=== PATIENT | male | born 1975 | race Caucasian/White ===

== ENCOUNTER 2016-11-04 11:26 | Inpatient (IN) | payer OTHER ==
[2016-11-04 11:39] VITALS: BMI 25.1
--- NOTE | 2016-11-04 12:39 | HP ---
COWS - Scale Resting Pulse: 1= CT 81-100 Sweatin=Flushed/Facial Moisture Restless Observation: 3= Extraneous Movement Pupil Size: 2= Moderately Dilated Bone or Joint Aches: 2= Severe Diffuse Aches Runny Nose/ Eye Tearin= Runny Nose/Eyes GI Upset > 30mins: 3= Vomiting/Diarrhea Tremor Observation: 2= Slight Tremor Visible Yawning Observation: 2= >3x During Session Anxiety or Irritability: 2=Irritable/Anxious Goose Flesh Skin: 0=Smooth Skin COWS Score: 21 CIWA Score - CIWA Score Nausea/Vomitin Muscle Tremors: 3 Anxiety: 3 Agitation: 3 Paroxysmal Sweats: 2 Orientation: 0-Oriented Tacttile Disturbances: 2-Mild Itch/Numbness/Burn Auditory Disturbances: 2-Mild Harshness/Frighten Visual Disturbances: 2-Mild Sensitivity Headache: 2-Mild CIWA-Ar Total Score: 22 Admission ROS BHS - HPI Chief Complaint: I NEED HELP TO STOP USING HEROIN AND XANAX History of Present Illness: THIS 41 YEARS OLD MALE WITH HEROIN AND XANAX DEPENDENCE,WITHDRAWAL SYMPTOM, NEVER BEEN IN DETOX BEFORE NICOTINE DEPENDENCE LOW BACK PAIN NEED HELP TO STOP Exam Limitations: No Limitations - Ebola screening Have you traveled outside of the country in the last 21 days: No Have you been sick,other than usual withdrawal symptoms: No - Review of Systems Constitutional: Chills, Diaphoresis, Loss of Appetite, Malaise, Night Sweats, Changes in sleep, Weakness EENT: reports: Tearing, Nose Congestion Respiratory: reports: No Symptoms reported Cardiac: reports: Palpitations GI: reports: Diarrhea, Nausea, Vomiting, Abdominal cramping : reports: No Symptoms Reported Musculoskeletal: reports: Back Pain, Joint Pain, Muscle Pain, Muscle Weakness Integumentary: reports: Dryness Neuro: reports: Headache, Tremors Endocrine: reports: No Symptoms Reported Hematology: reports: No Symptoms Reported Psychiatric: reports: No Sypmtoms Reported Patient History - Patient Medical History Hx Anemia: No Hx Asthma: No Hx Chronic Obstructive Pulmonary Disease (COPD): No Hx Cancer: No Hx Cardiac Disorders: No Hx Congestive Heart Failure: No Hx Hypertension: No Hx Hypercholesterolemia: No Hx Pacemaker: No HX Cerebrovascular Accident: No Hx Seizures: No Hx Dementia: No Hx Diabetes: No Hx Gastrointestinal Disorders: No Hx Liver Disease: No Hx Genitourinary Disorders: No Hx Sexually Transmitted Disorders: No Hx Renal Disease (ESRD): No Hx Thyroid Disease: No Hx Human Immunodeficiency Virus (HIV): No (2011 LAST NEGATIVE) Hx Hepatitis C: No Hx Depression: No Hx Suicide Attempt: No Hx Bipolar Disorder: No Hx Schizophrenia: No Other Medical History: NO SUICIDAL,NO HOMICIDAL - Patient Surgical History Past Surgical History: No - PPD History Previous Implant?: Yes Documented Results: Negative w/o proof Implanted On Prior R Admission?: No PPD to be Administered?: Yes - Smoking Cessation Smoking history: Current every day smoker Have you smoked in the past 12 months: Yes Aproximately how many cigarettes per day: 20 Cigars Per Day: 0 Hx Chewing Tobacco Use: No Initiated information on smoking cessation: Yes 'Breaking Loose' booklet given: 11/04/16 - Substance & Tx. History Hx Alcohol Use: No Hx Substance Use: Yes Substance Use Type: Heroin, Tranquilizers Hx Substance Use Treatment: No Family Disease History - Family Disease History Family History: Denies Admission Physical Exam S - Vital Signs Vital Signs: Vital Signs - 24 hr 11/04/16 11:37 Temperature 97.3 F L Pulse Rate 94 H Respiratory 18 Rate Blood Pressure 120/86 - Physical General Appearance: Yes: Moderate Distress, Tremorous, Irritable, Sweating, Anxious HEENTM: Yes: Nasal Congestion Respiratory: Yes: Lungs Clear Neck: Yes: Within Normal Limits Breast: Yes: Within Normal Limits Cardiology: Yes: Within Normal Limits, Regular Rhythm, Regular Rate, S1, S2 Abdominal: Yes: Within Normal Limits, Normal Bowel Sounds, Non Tender, Flat, Soft Genitourinary: Yes: Within Normal Limits Back: Yes: Muscle Spasm Musculoskeletal: Yes: Back pain, Joint Stiffness, Muscle Pain Extremities: Yes: Tremors 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, Fully Oriented, Alert, Motor Strength 5/5 Integumentary: Yes: Dry Lymphatic: Yes: Within Normal Limits - Diagnostic (1) Opioid dependence with withdrawal Current Visit: Yes Status: Acute (2) Uncomplicated sedative, hypnotic or anxiolytic withdrawal Current Visit: Yes Status: Acute (3) Low back pain Current Visit: Yes Status: Acute (4) Herniated lumbar intervertebral disc Current Visit: Yes Status: Acute (5) Nicotine dependence Current Visit: Yes Status: Acute (6) Fracture of coccyx Current Visit: Yes Status: Acute (7) Weight loss Current Visit: Yes Status: Acute Cleared for Admission [facility] - Detox or Rehab [facility] Level of Care: Medically Managed Detox Regimen/Protocol: Methadone/Valium S Breath Alcohol Content Breath Alcohol Content: 0 Urine Drug Screen - Results Drug Screen Negative: No Urine Drug Screen Results: OPI-Opiates, MDMA-Ecstasy, BZO-Benzodiazepines, MTD- Methadone
[2016-11-04] MEDS ORDERED: MAGNESIUM CITRATE 300 ML BOTTLE PO PRN (12:59)
[2016-11-04] MEDS ORDERED: hydrOXYzine PAMOATE 50 MG CAPSULE (FP) PO PRN (12:59)
[2016-11-04] MEDS ORDERED: NICOTINE POLACRILEX 2 MG GUM BUC PRN (12:59)
[2016-11-04] MEDS ORDERED: MAGNESIUM HYDROX 2400MG/30ML ORAL SUSPENSION 30 ML CUP PO PRN (12:59)
[2016-11-04] MEDS ORDERED: ACETAMINOPHEN 325 MG TABLET (FP) PO PRN (12:59)
[2016-11-04] MEDS ORDERED: guaiFENesin/D-METHORPHAN HB 10 ML UNIT-DOSE CUPS PO PRN (12:59)
[2016-11-04] MEDS ORDERED: MENTHOL/PHENOL 1 EACH UD MM PRN (12:59)
[2016-11-04] MEDS ORDERED: P-EPHED 60MG/TRIPROLIDI 2.5MG TABLET PO PRN (12:59)
[2016-11-04] MEDS ORDERED: LOPERAMIDE HCL 2 MG CAPSULE PO PRN (12:59)
[2016-11-04] MEDS ORDERED: MAG HYDROX/AL HYDROX/SIMETH 30 ML UNIT-DOSE CUP PO PRN (12:59)
[2016-11-04] MEDS ORDERED: IBUPROFEN 400 MG TABLET (FP) PO PRN (12:59)
[2016-11-04] MEDS ORDERED: diazePAM 5 MG TABLET PO ONE (13:42)
[2016-11-04] MEDS ORDERED: METHADONE HCL 10 MG TABLET (FOR DETOX USE ONLY) PO ONE ×2 (13:44→23:00)
[2016-11-04] MEDS: NICOTINE 21 MG/24 HOURS TOPICAL PATCH TD SCH (14:54)
[2016-11-04] MEDS: diazePAM 5 MG TABLET PO SCH ×2 (14:59→22:07)
[2016-11-04] MEDS: diazePAM 5 MG TABLET PO PRN (18:27)
[2016-11-04] MEDS: CYCLOBENZAPRINE HCL 10 MG TABLET (FP) PO PRN (18:30)
[2016-11-04 20:06] LABS: URINE APPEARANCE CLEAR; URINE BILIRUBIN NEGATIVE (NEGATIVE); URINE BLOOD NEGATIVE (NEGATIVE); URINE COLOR DKYELLOW; URINE GLUCOSE (UA) NEGATIVE (NEGATIVE); URINE KETONE 2+ (NEGATIVE); URINE LEUK ESTERASE NEGATIVE (NEGATIVE); URINE NITRITE NEGATIVE (NEGATIVE); URINE PROTEIN NEGATIVE (NEGATIVE); URINE UROBILINOGEN 4.0 E.U/dl E.U./dl (0.2-1.0)
[2016-11-04] MEDS: THIAMINE HCL 100 MG TABLET (FP) PO SCH (22:06)
[2016-11-04] MEDS: cloNIDine HCL 0.1 MG TABLET PO SCH (22:07)
[2016-11-04] MEDS: diphenhydrAMINE HCL 50 MG CAPSULE PO PRN (22:07)
[2016-11-05] MEDS: diazePAM 5 MG TABLET PO PRN ×3 (04:23→17:18)
[2016-11-05] MEDS: diazePAM 5 MG TABLET PO SCH ×3 (05:40→22:10)
[2016-11-05] MEDS: CYCLOBENZAPRINE HCL 10 MG TABLET (FP) PO PRN ×2 (05:43→22:12)
--- NOTE | 2016-11-05 09:28 | PN ---
[facility] CIWA - CIWA Score Nausea/Vomitin Muscle Tremors: 3 Anxiety: 3 Agitation: 2 Paroxysmal Sweats: 1-Minimal Palms Moist Orientation: 0-Oriented Tacttile Disturbances: 1-Very Mild Itch/Numbness Auditory Disturbances: 1-Very Mild Visual Disturbances: 1-Very Mild Sensitivity Headache: 2-Mild CIWA-Ar Total Score: 17 BHS COWS - Scale Resting Pulse: 1= ID 81-100 Sweatin= Chills/Flushing Restless Observation: 3= Extraneous Movement Pupil Size: 1= Pupils >than Normal Bone or Joint Aches: 2= Severe Diffuse Aches Runny Nose/ Eye Tearin= Runny Nose/Eyes GI Upset > 30mins: 2= Nausea/Diarrhea Tremor Observation of Outstretched Hands: 2= Slight Tremor Visible Yawning Observation: 1= 1-2x During Session Anxiety or Irritability: 2=Irritable/Anxious Goose Flesh Skin: 0=Smooth Skin COWS Score: 17 [facility] Progress Note (SOAP) Subjective: ALERT,IRRITABLE,ANXIOUS,INTERRUPTED SLEEP,TREMOR Objective: 11/05/16 09:25 Vital Signs Temperature 97.7 F 11/05/16 06:08 Pulse Rate 83 11/05/16 06:08 Respiratory Rate 16 11/05/16 06:08 Blood Pressure 113/78 11/05/16 06:08 O2 Sat by Pulse Oximetry (%) EKG NSR WITH SINUS ARRHYTHMIA 11/05/16 09:27 Laboratory 11/04/16 14:00 Urine Color Dkyellow Urine Appearance Clear Urine pH 7.0 (5.0-8.0) Ur Specific [place] 1.024 (1.001-1.035) Urine Protein Negative (NEGATIVE) Urine Glucose (UA) Negative (NEGATIVE) Urine Ketones 2+ H (NEGATIVE) Urine Blood Negative (NEGATIVE) Urine Nitrite Negative (NEGATIVE) Urine Bilirubin Negative (NEGATIVE) Urine Urobilinogen 4.0 e.u/dl E.U./dl E.U./dl (0.2-1.0) Ur Leukocyte Esterase Negative (NEGATIVE) LABS PENDING Assessment: 11/05/16 09:27 WITHDRAWAL SYMPTOM Plan: CONTINUE DETOX
[2016-11-05] MEDS ORDERED: METHADONE HCL 10 MG TABLET (FOR DETOX USE ONLY) PO SCH (10:00)
[2016-11-05] MEDS: PRENATAL VITAMINS W/ FOLIC ACID TABLET (FP) PO SCH (10:10)
[2016-11-05] MEDS: cloNIDine HCL 0.1 MG TABLET PO SCH ×2 (10:10→22:10)
[2016-11-05] MEDS: NICOTINE 21 MG/24 HOURS TOPICAL PATCH TD SCH (10:11)
[2016-11-05 11:37] LABS: MCH 29.4 pg (25.7-33.7); MCHC 33.7 g/dl (32.0-35.9); MEAN CELL VOLUME 87.1 fl (80-96); MEAN PLT VOLUME 8.2 fl (7.5-11.1); PLATELET COUNT 276 K/MM3 (134-434); RDW 13.6 % (11.9-15.9); WHITE BLOOD COUNT 16.2 K/mm3 (4.0-10.0)
[2016-11-05 11:56] LABS: ALBUMIN 4.3 g/dl (3.4-5.0); ANION GAP 6 (8-16); CALCIUM 9.5 mg/dL (8.5-10.1); CO2 30 mmol/L (21-32); GLUCOSE,RANDOM 96 mg/dL (74-106)
[2016-11-05 11:59] LABS: ALK PHOS 91 U/L (45-117); BILIRUBIN,TOTAL 0.7 mg/dL (0.2-1.0); CREATININE 0.8 mg/dL (0.7-1.3); SGOT/AST 15 U/L (15-37); SGPT/ALT 27 U/L (12-78); TOT PROT 7.5 g/dl (6.4-8.2)
[2016-11-05] MEDS: THIAMINE HCL 100 MG TABLET (FP) PO SCH (22:10)
[2016-11-05] MEDS: diphenhydrAMINE HCL 50 MG CAPSULE PO PRN (22:12)
[2016-11-06] MEDS: diazePAM 5 MG TABLET PO PRN ×2 (05:34→14:58)
[2016-11-06] MEDS: cloNIDine HCL 0.1 MG TABLET PO SCH ×2 (10:15→22:04)
[2016-11-06] MEDS: diazePAM 5 MG TABLET PO SCH ×2 (10:15→22:04)
[2016-11-06] MEDS: PRENATAL VITAMINS W/ FOLIC ACID TABLET (FP) PO SCH (10:15)
[2016-11-06] MEDS: METHADONE HCL 5 MG TABLET (FOR DETOX USE ONLY) PO SCH (10:15)
[2016-11-06] MEDS: NICOTINE 21 MG/24 HOURS TOPICAL PATCH TD SCH (10:16)
--- NOTE | 2016-11-06 15:49 | PN ---
[facility] CIWA - CIWA Score Nausea/Vomitin-No Nausea/No Vomiting Muscle Tremors: 3 Anxiety: 4-Mod. Anxious/Guarded Agitation: 3 Paroxysmal Sweats: 3 Orientation: 0-Oriented Tacttile Disturbances: 0-None Auditory Disturbances: 0-None Visual Disturbances: 0-None Headache: 0-None Present CIWA-Ar Total Score: 13 BHS COWS - Scale Resting Pulse: 1= MT 81-100 Sweatin=Flushed/Facial Moisture Restless Observation: 1= Difficult to Sit Still Pupil Size: 0= Normal to Room Light Bone or Joint Aches: 2= Severe Diffuse Aches Runny Nose/ Eye Tearin= Nasal Congestion GI Upset > 30mins: 2= Nausea/Diarrhea Tremor Observation of Outstretched Hands: 2= Slight Tremor Visible Yawning Observation: 1= 1-2x During Session Anxiety or Irritability: 2=Irritable/Anxious Goose Flesh Skin: 0=Smooth Skin COWS Score: 14 S Progress Note (SOAP) Subjective: ANXIETY,TREMORS,SWEATING,INTERRUPTED SLEEP,RESTLESS Objective: 11/06/16 15:49 Vital Signs - 8 hr 11/06/16 11/06/16 10:33 13:47 Temperature 96.2 F L 98.2 F Pulse Rate 84 92 H Respiratory 20 18 Rate Blood Pressure 121/75 122/76 Laboratory Last Values WBC 16.2 K/mm3 (4.0-10.0) H 11/05/16 06:00 RBC 5.79 M/mm3 (4.00-5.60) H 11/05/16 06:00 Hgb 17.0 GM/dL (11.7-16.9) H 11/05/16 06:00 Hct 50.4 % (35.4-49) H 11/05/16 06:00 MCV 87.1 fl (80-96) 11/05/16 06:00 MCHC 33.7 g/dl (32.0-35.9) 11/05/16 06:00 RDW 13.6 % (11.9-15.9) 11/05/16 06:00 Plt Count 276 K/MM3 (134-434) 11/05/16 06:00 MPV 8.2 fl (7.5-11.1) 11/05/16 06:00 Sodium 138 mmol/L (136-145) 11/05/16 06:00 Potassium 5.1 mmol/L (3.5-5.1) 11/05/16 06:00 Chloride 102 mmol/L (98-107) 11/05/16 06:00 Carbon Dioxide 30 mmol/L (21-32) 11/05/16 06:00 Anion Gap 6 (8-16) L 11/05/16 06:00 BUN 11 mg/dL (7-18) 11/05/16 06:00 Creatinine 0.8 mg/dL (0.7-1.3) 11/05/16 06:00 Creat Clearance w eGFR > 60 (>60) 11/05/16 06:00 Random Glucose 96 mg/dL (74-106) 11/05/16 06:00 Calcium 9.5 mg/dL (8.5-10.1) 11/05/16 06:00 Total Bilirubin 0.7 mg/dL (0.2-1.0) 11/05/16 06:00 AST 15 U/L (15-37) 11/05/16 06:00 ALT 27 U/L (12-78) 11/05/16 06:00 Alkaline Phosphatase 91 U/L (45-117) 11/05/16 06:00 Total Protein 7.5 g/dl (6.4-8.2) 11/05/16 06:00 Albumin 4.3 g/dl (3.4-5.0) 11/05/16 06:00 Urine Color Dkyellow 11/04/16 14:00 Urine Appearance Clear 11/04/16 14:00 Urine pH 7.0 (5.0-8.0) 11/04/16 14:00 Ur Specific [place] 1.024 (1.001-1.035) 11/04/16 14:00 Urine Protein Negative (NEGATIVE) 11/04/16 14:00 Urine Glucose (UA) Negative (NEGATIVE) 11/04/16 14:00 Urine Ketones 2+ (NEGATIVE) H 11/04/16 14:00 Urine Blood Negative (NEGATIVE) 11/04/16 14:00 Urine Nitrite Negative (NEGATIVE) 11/04/16 14:00 Urine Bilirubin Negative (NEGATIVE) 11/04/16 14:00 Urine Urobilinogen 4.0 e.u/dl E.U./dl (0.2-1.0) 11/04/16 14:00 Ur Leukocyte Esterase Negative (NEGATIVE) 11/04/16 14:00 RPR Titer Nonreactive (NONREACTIVE) 11/05/16 06:00 LABS NOTED Assessment: 11/06/16 15:49 WITHDRAWAL SX. Plan: CONTINUE DETOX
[2016-11-06] MEDS: THIAMINE HCL 100 MG TABLET (FP) PO SCH (22:04)
[2016-11-06] MEDS: diphenhydrAMINE HCL 50 MG CAPSULE PO PRN (22:04)
[2016-11-07] MEDS: diazePAM 5 MG TABLET PO PRN (04:12)
[2016-11-07] MEDS: diazePAM 5 MG TABLET PO SCH ×2 (10:18→22:31)
[2016-11-07] MEDS: cloNIDine HCL 0.1 MG TABLET PO SCH ×2 (10:18→22:31)
[2016-11-07] MEDS: METHADONE HCL 5 MG TABLET (FOR DETOX USE ONLY) PO SCH (10:18)
[2016-11-07] MEDS: PRENATAL VITAMINS W/ FOLIC ACID TABLET (FP) PO SCH (10:18)
[2016-11-07] MEDS: NICOTINE 21 MG/24 HOURS TOPICAL PATCH TD SCH (10:19)
[2016-11-07] MEDS: CYCLOBENZAPRINE HCL 10 MG TABLET (FP) PO PRN (10:20)
--- NOTE | 2016-11-07 13:44 | PN ---
[facility] Progress Note (SOAP) Subjective: SWEATING,INTERRUPTED SLEEP,RESTLESS Objective: 11/07/16 13:43 Vital Signs - 8 hr 11/07/16 11/07/16 06:09 10:00 Temperature 96.8 F L 98.2 F Pulse Rate 89 95 H Respiratory 18 20 Rate Blood Pressure 114/72 143/77 Laboratory Tests 11/04/16 11/05/16 11/05/16 14:00 06:00 06:00 WBC 16.2 H RBC 5.79 H Hgb 17.0 H Hct 50.4 H MCV 87.1 MCHC 33.7 RDW 13.6 Plt Count 276 MPV 8.2 Sodium 138 Potassium 5.1 Chloride 102 Carbon Dioxide 30 Anion Gap 6 L BUN 11 Creatinine 0.8 Creat Clearance w eGFR > 60 Random Glucose 96 Calcium 9.5 Total Bilirubin 0.7 AST 15 ALT 27 Alkaline Phosphatase 91 Total Protein 7.5 Albumin 4.3 Urine Color Dkyellow Urine Appearance Clear Urine pH 7.0 Ur Specific [place] 1.024 Urine Protein Negative Urine Glucose (UA) Negative Urine Ketones 2+ H Urine Blood Negative Urine Nitrite Negative Urine Bilirubin Negative Urine Urobilinogen 4.0 e.u/dl Ur Leukocyte Esterase Negative RPR Titer 11/05/16 06:00 WBC RBC Hgb Hct MCV MCHC RDW Plt Count MPV Sodium Potassium Chloride Carbon Dioxide Anion Gap BUN Creatinine Creat Clearance w eGFR Random Glucose Calcium Total Bilirubin AST ALT Alkaline Phosphatase Total Protein Albumin Urine Color Urine Appearance Urine pH Ur Specific [place] Urine Protein Urine Glucose (UA) Urine Ketones Urine Blood Urine Nitrite Urine Bilirubin Urine Urobilinogen Ur Leukocyte Esterase RPR Titer Nonreactive LABS NOTED Assessment: 11/07/16 13:44 WITHDRAWAL SX. Plan: CONTINUE DETOX
[2016-11-07] MEDS: THIAMINE HCL 100 MG TABLET (FP) PO SCH (22:31)
[2016-11-07] MEDS: diphenhydrAMINE HCL 50 MG CAPSULE PO PRN (22:31)
[2016-11-08] MEDS ORDERED: diazePAM 5 MG TABLET PO SCH (10:00)
[2016-11-08] MEDS ORDERED: METHADONE HCL 10 MG TABLET (FOR DETOX USE ONLY) PO SCH (10:00)
[2016-11-08] MEDS: PRENATAL VITAMINS W/ FOLIC ACID TABLET (FP) PO SCH (10:20)
[2016-11-08] MEDS: cloNIDine HCL 0.1 MG TABLET PO SCH ×2 (10:20→22:36)
[2016-11-08] MEDS: NICOTINE 21 MG/24 HOURS TOPICAL PATCH TD SCH (10:21)
--- NOTE | 2016-11-08 14:50 | PN ---
[facility] Progress Note (SOAP) Subjective: Interrupted Sleep, Back Ache, Anxious, Sweating. Objective: 11/08/16 14:48 Vital Signs Temperature 97.6 F 11/08/16 13:56 Pulse Rate 105 H 11/08/16 13:56 Respiratory Rate 20 11/08/16 13:56 Blood Pressure 128/69 11/08/16 13:56 O2 Sat by Pulse Oximetry (%) Laboratory Last Values WBC 16.2 K/mm3 (4.0-10.0) H 11/05/16 06:00 RBC 5.79 M/mm3 (4.00-5.60) H 11/05/16 06:00 Hgb 17.0 GM/dL (11.7-16.9) H 11/05/16 06:00 Hct 50.4 % (35.4-49) H 11/05/16 06:00 MCV 87.1 fl (80-96) 11/05/16 06:00 MCHC 33.7 g/dl (32.0-35.9) 11/05/16 06:00 RDW 13.6 % (11.9-15.9) 11/05/16 06:00 Plt Count 276 K/MM3 (134-434) 11/05/16 06:00 MPV 8.2 fl (7.5-11.1) 11/05/16 06:00 Sodium 138 mmol/L (136-145) 11/05/16 06:00 Potassium 5.1 mmol/L (3.5-5.1) 11/05/16 06:00 Chloride 102 mmol/L (98-107) 11/05/16 06:00 Carbon Dioxide 30 mmol/L (21-32) 11/05/16 06:00 Anion Gap 6 (8-16) L 11/05/16 06:00 BUN 11 mg/dL (7-18) 11/05/16 06:00 Creatinine 0.8 mg/dL (0.7-1.3) 11/05/16 06:00 Creat Clearance w eGFR > 60 (>60) 11/05/16 06:00 Random Glucose 96 mg/dL (74-106) 11/05/16 06:00 Calcium 9.5 mg/dL (8.5-10.1) 11/05/16 06:00 Total Bilirubin 0.7 mg/dL (0.2-1.0) 11/05/16 06:00 AST 15 U/L (15-37) 11/05/16 06:00 ALT 27 U/L (12-78) 11/05/16 06:00 Alkaline Phosphatase 91 U/L (45-117) 11/05/16 06:00 Total Protein 7.5 g/dl (6.4-8.2) 11/05/16 06:00 Albumin 4.3 g/dl (3.4-5.0) 11/05/16 06:00 Urine Color Dkyellow 11/04/16 14:00 Urine Appearance Clear 11/04/16 14:00 Urine pH 7.0 (5.0-8.0) 11/04/16 14:00 Ur Specific [place] 1.024 (1.001-1.035) 11/04/16 14:00 Urine Protein Negative (NEGATIVE) 11/04/16 14:00 Urine Glucose (UA) Negative (NEGATIVE) 11/04/16 14:00 Urine Ketones 2+ (NEGATIVE) H 11/04/16 14:00 Urine Blood Negative (NEGATIVE) 11/04/16 14:00 Urine Nitrite Negative (NEGATIVE) 11/04/16 14:00 Urine Bilirubin Negative (NEGATIVE) 11/04/16 14:00 Urine Urobilinogen 4.0 e.u/dl E.U./dl (0.2-1.0) 11/04/16 14:00 Ur Leukocyte Esterase Negative (NEGATIVE) 11/04/16 14:00 RPR Titer Nonreactive (NONREACTIVE) 11/05/16 06:00 LABS NOTED. Assessment: 11/08/16 14:48 WITHDRAWAL SYMPTOMS. Plan: CONTINUE DETOX. ADVISED PT. TO FOLLOW-UP WITH PMD / REHAB MEDICAL PROVIDER AFTER DISCHARGE FOR GENERAL MEDICAL ASSESSMENT AND REGARDING ABNORMAL LAB VALUES.
[2016-11-08] MEDS: THIAMINE HCL 100 MG TABLET (FP) PO SCH (22:36)
[2016-11-08] MEDS: diphenhydrAMINE HCL 50 MG CAPSULE PO PRN (22:37)
[2016-11-08] MEDS: CYCLOBENZAPRINE HCL 10 MG TABLET (FP) PO PRN (22:37)
[2016-11-09] MEDS ORDERED: METHADONE HCL 5 MG TABLET (FOR DETOX USE ONLY) PO SCH (06:00)
--- NOTE | 2016-11-09 08:43 | DS ---
[facility] Detox Discharge Summary Admission Date: 11/04/16 Discharge Date: 11/09/16 - History Present History: Opioid Dependence, Sedative Dependence Pertinent Past History: HERNIATED LUMBAR DISC - Physical Exam Results Vital Signs: Vital Signs Temperature 98.3 F 11/09/16 06:20 Pulse Rate 89 11/09/16 06:20 Respiratory Rate 18 11/09/16 06:20 Blood Pressure 111/75 11/09/16 06:20 O2 Sat by Pulse Oximetry (%) Pertinent Admission Physical Exam Findings: WITHDRAWAL SX. Laboratory Last Values WBC 16.2 K/mm3 (4.0-10.0) H 11/05/16 06:00 RBC 5.79 M/mm3 (4.00-5.60) H 11/05/16 06:00 Hgb 17.0 GM/dL (11.7-16.9) H 11/05/16 06:00 Hct 50.4 % (35.4-49) H 11/05/16 06:00 MCV 87.1 fl (80-96) 11/05/16 06:00 MCHC 33.7 g/dl (32.0-35.9) 11/05/16 06:00 RDW 13.6 % (11.9-15.9) 11/05/16 06:00 Plt Count 276 K/MM3 (134-434) 11/05/16 06:00 MPV 8.2 fl (7.5-11.1) 11/05/16 06:00 Sodium 138 mmol/L (136-145) 11/05/16 06:00 Potassium 5.1 mmol/L (3.5-5.1) 11/05/16 06:00 Chloride 102 mmol/L (98-107) 11/05/16 06:00 Carbon Dioxide 30 mmol/L (21-32) 11/05/16 06:00 Anion Gap 6 (8-16) L 11/05/16 06:00 BUN 11 mg/dL (7-18) 11/05/16 06:00 Creatinine 0.8 mg/dL (0.7-1.3) 11/05/16 06:00 Creat Clearance w eGFR > 60 (>60) 11/05/16 06:00 Random Glucose 96 mg/dL (74-106) 11/05/16 06:00 Calcium 9.5 mg/dL (8.5-10.1) 11/05/16 06:00 Total Bilirubin 0.7 mg/dL (0.2-1.0) 11/05/16 06:00 AST 15 U/L (15-37) 11/05/16 06:00 ALT 27 U/L (12-78) 11/05/16 06:00 Alkaline Phosphatase 91 U/L (45-117) 11/05/16 06:00 Total Protein 7.5 g/dl (6.4-8.2) 11/05/16 06:00 Albumin 4.3 g/dl (3.4-5.0) 11/05/16 06:00 Urine Color Dkyellow 11/04/16 14:00 Urine Appearance Clear 11/04/16 14:00 Urine pH 7.0 (5.0-8.0) 11/04/16 14:00 Ur Specific [place] 1.024 (1.001-1.035) 11/04/16 14:00 Urine Protein Negative (NEGATIVE) 11/04/16 14:00 Urine Glucose (UA) Negative (NEGATIVE) 11/04/16 14:00 Urine Ketones 2+ (NEGATIVE) H 11/04/16 14:00 Urine Blood Negative (NEGATIVE) 11/04/16 14:00 Urine Nitrite Negative (NEGATIVE) 11/04/16 14:00 Urine Bilirubin Negative (NEGATIVE) 11/04/16 14:00 Urine Urobilinogen 4.0 e.u/dl E.U./dl (0.2-1.0) 11/04/16 14:00 Ur Leukocyte Esterase Negative (NEGATIVE) 11/04/16 14:00 RPR Titer Nonreactive (NONREACTIVE) 11/05/16 06:00 LABS NOTED - Treatment Hospital Course: Detox Protocol Followed, Detoxed Safely, Responded well, Discharged Condition Good, Rehab Referral Accepted - Medication Discharge Medications: Ambulatory Orders NK [No Known Home Medication] 11/04/16 - Diagnosis (1) Nicotine dependence Current Visit: Yes Status: Acute Qualifiers: Nicotine product type: cigarettes Substance use status: uncomplicated Qualified Code(s): F17.210 - Nicotine dependence, cigarettes, uncomplicated (2) Opioid dependence with withdrawal Current Visit: Yes Status: Acute (3) Uncomplicated sedative, hypnotic or anxiolytic withdrawal Current Visit: Yes Status: Acute - AMA Did Patient Leave Against Medical Advice: No
[2016-11-09 10:46] VITALS: BP 139/84; PULSE 121; TEMP 98.5
== END 2016-11-09 09:16 | disposition home or self-care (01) | DRG 773 ==
LOC: YASAS 11:26 → Y3N 13:09
PROVIDERS: ADMIT Internal Medicine; ATTEND Internal Medicine
PROC: HZ2ZZZZ Detoxification Services for Substance Abuse Treatment (ICD-10-PCS; principal; 2016-11-04)
DX: F11.23 Opioid dependence with withdrawal (principal); F13.230 Sedative, hypnotic or anxiolytic dependence with withdrawal, uncomplicated; F17.210 Nicotine dependence, cigarettes, uncomplicated; I49.9 Cardiac arrhythmia, unspecified; M51.26 Other intervertebral disc displacement, lumbar region; Z87.898 Personal history of other specified conditions; Z87.81 Personal history of (healed) traumatic fracture
CPT/HCPCS: 36415; 80053; 81003; 85027; 86593; 93005; 93010

== ENCOUNTER 2021-07-18 10:02 | Inpatient (IN) | payer OTHER ==
[2021-07-18 11:52] VITALS: BMI 32.0
[2021-07-18] MEDS ORDERED: ACETAMINOPHEN 325 MG TABLET (FP) PO PRN (11:57)
[2021-07-18] MEDS ORDERED: MAGNESIUM HYDROX 2400MG/30ML ORAL SUSPENSION 30 ML CUP PO PRN (11:57)
[2021-07-18] MEDS ORDERED: MAG HYDROX/AL HYDROX/SIMETH 30 ML UNIT-DOSE CUP PO PRN (11:57)
[2021-07-18] MEDS ORDERED: BISMUTH SUBSALICYLATE 524 MG/30 ML PO PRN (11:57)
[2021-07-18] MEDS ORDERED: MENTHOL/PHENOL 1 EACH UD MM PRN (11:57)
[2021-07-18] MEDS ORDERED: MAGNESIUM CITRATE 300 ML BOTTLE PO PRN (11:57)
[2021-07-18] MEDS ORDERED: methaDONE HCL 10 MG TABLET (FOR DETOX USE ONLY) PO ONE (13:30)
[2021-07-18 14:02] LABS: HEMATOCRIT 46.1 % (35.4-49); HEMOGLOBIN 15.9 GM/dL (11.7-16.9); MCH 29.5 pg (25.7-33.7); MCHC 34.6 g/dl (32.0-35.9); MEAN CELL VOLUME 85.4 fl (80-96); MEAN PLT VOLUME 7.2 fl (7.5-11.1); PLATELET COUNT 252 10^3/uL (134-434); RBC 5.39 M/mm3 (4.00-5.60); RDW 14.3 % (11.9-15.9); WHITE BLOOD COUNT 12.1 K/mm3 (4.0-10.0)
[2021-07-18 14:24] LABS: BLOOD UREA NITROGEN 13.9 mg/dL (7-18); CALCIUM 9.3 mg/dL (8.5-10.1)
[2021-07-18 14:25] LABS: ALBUMIN 3.9 g/dl (3.4-5.0)
[2021-07-18 14:28] LABS: CREATININE 0.9 mg/dL (0.55-1.3)
[2021-07-18 14:29] LABS: BILIRUBIN,TOTAL 0.5 mg/dL (0.2-1); TOT PROT 7.5 g/dl (6.4-8.2)
[2021-07-18] MEDS: PRENATAL VITAMINS W/ FOLIC ACID TABLET (FP) PO SCH (15:26)
[2021-07-18] MEDS: hydrOXYzine PAMOATE 25 MG CAPSULE (FP) PO SCH ×3 (15:26→22:10)
[2021-07-18] MEDS: NICOTINE 14 MG/24 HOURS TOPICAL PATCH TD SCH (15:26)
[2021-07-18] MEDS: cloNIDine HCL 0.1 MG TABLET PO PRN ×2 (18:11→22:10)
[2021-07-18] MEDS: METHOCARBAMOL 500 MG TABLET PO PRN (18:11)
[2021-07-18] MEDS: THIAMINE HCL 100 MG TABLET (FP) PO SCH (22:10)
[2021-07-18] MEDS: MELATONIN 5 MG TABLETS PO SCH (22:10)
[2021-07-19] MEDS: METHOCARBAMOL 500 MG TABLET PO PRN ×2 (00:43→12:55)
[2021-07-19] MEDS: hydrOXYzine PAMOATE 25 MG CAPSULE (FP) PO SCH ×5 (05:34→22:59)
[2021-07-19] MEDS: cloNIDine HCL 0.1 MG TABLET PO PRN ×2 (08:12→19:45)
[2021-07-19] MEDS ORDERED: methaDONE HCL 10 MG TABLET (FOR DETOX USE ONLY) ONE (08:56)
[2021-07-19] MEDS: PRENATAL VITAMINS W/ FOLIC ACID TABLET (FP) PO SCH (10:06)
[2021-07-19] MEDS: NICOTINE 14 MG/24 HOURS TOPICAL PATCH TD SCH (10:07)
[2021-07-19] MEDS: NICOTINE 10 MG CARTRIDGE (INHALER) IH PRN (12:56)
[2021-07-19] MEDS: IBUPROFEN 400 MG TABLET (FP) PO PRN (18:03)
[2021-07-19] MEDS: clonazePAM 0.5 MG ODT TABLETS SL PRN (19:45)
[2021-07-19] MEDS: THIAMINE HCL 100 MG TABLET (FP) PO SCH (22:20)
[2021-07-19] MEDS: MELATONIN 5 MG TABLETS PO SCH (22:20)
[2021-07-20] MEDS: cloNIDine HCL 0.1 MG TABLET PO PRN ×2 (01:45→07:25)
[2021-07-20] MEDS: hydrOXYzine PAMOATE 25 MG CAPSULE (FP) PO SCH ×5 (05:54→22:22)
[2021-07-20] MEDS: METHOCARBAMOL 500 MG TABLET PO PRN ×3 (07:25→20:51)
[2021-07-20] MEDS ORDERED: methaDONE HCL 10 MG TABLET (FOR DETOX USE ONLY) PO ONE (10:00)
[2021-07-20] MEDS: PRENATAL VITAMINS W/ FOLIC ACID TABLET (FP) PO SCH (10:37)
[2021-07-20] MEDS: NICOTINE 14 MG/24 HOURS TOPICAL PATCH TD SCH (10:38)
[2021-07-20] MEDS: IBUPROFEN 400 MG TABLET (FP) PO PRN ×3 (10:39→23:57)
[2021-07-20] MEDS: ACETAMINOPHEN 325 MG TABLET (FP) PO PRN (12:25)
[2021-07-20] MEDS: NICOTINE 10 MG CARTRIDGE (INHALER) IH PRN (17:34)
[2021-07-20] MEDS: MELATONIN 5 MG TABLETS PO SCH (22:22)
[2021-07-20] MEDS: THIAMINE HCL 100 MG TABLET (FP) PO SCH (22:22)
[2021-07-21] MEDS: clonazePAM 0.5 MG ODT TABLETS SL PRN (02:26)
[2021-07-21] MEDS: hydrOXYzine PAMOATE 25 MG CAPSULE (FP) PO SCH ×5 (05:39→21:29)
[2021-07-21] MEDS: ONDANSETRON *ODT* 4 MG TABLET SL PRN (08:41)
[2021-07-21] MEDS ORDERED: methaDONE HCL 10 MG TABLET (FOR DETOX USE ONLY) ONE (09:24)
[2021-07-21] MEDS: PRENATAL VITAMINS W/ FOLIC ACID TABLET (FP) PO SCH (10:20)
[2021-07-21] MEDS: NICOTINE 14 MG/24 HOURS TOPICAL PATCH TD SCH (10:21)
[2021-07-21] MEDS: ACETAMINOPHEN 325 MG TABLET (FP) PO PRN (12:20)
[2021-07-21] MEDS: IBUPROFEN 400 MG TABLET (FP) PO PRN ×2 (14:17→21:29)
[2021-07-21] MEDS: cloNIDine HCL 0.1 MG TABLET PO PRN ×2 (17:34→21:30)
[2021-07-21] MEDS: METHOCARBAMOL 500 MG TABLET PO PRN (17:34)
[2021-07-21] MEDS: THIAMINE HCL 100 MG TABLET (FP) PO SCH (21:29)
[2021-07-21] MEDS: MELATONIN 5 MG TABLETS PO SCH (21:30)
[2021-07-22] MEDS: METHOCARBAMOL 500 MG TABLET PO PRN ×3 (04:19→19:47)
[2021-07-22] MEDS: ACETAMINOPHEN 325 MG TABLET (FP) PO PRN ×2 (04:20→18:06)
[2021-07-22] MEDS: hydrOXYzine PAMOATE 25 MG CAPSULE (FP) PO SCH ×5 (06:11→22:50)
[2021-07-22] MEDS ORDERED: methaDONE HCL 10 MG TABLET (FOR DETOX USE ONLY) PO ONE (10:00)
[2021-07-22] MEDS: PRENATAL VITAMINS W/ FOLIC ACID TABLET (FP) PO SCH (10:22)
[2021-07-22] MEDS: IBUPROFEN 400 MG TABLET (FP) PO PRN ×2 (10:24→19:47)
[2021-07-22] MEDS: NICOTINE 14 MG/24 HOURS TOPICAL PATCH TD SCH (10:25)
[2021-07-22] MEDS: ONDANSETRON *ODT* 4 MG TABLET SL PRN (12:42)
[2021-07-22 13:05] LABS: BASO % 0.5 % (0-2.0); EOS % 0.6 % (0-4.5); HEMATOCRIT 48.8 % (35.4-49); HEMOGLOBIN 16.8 GM/dL (11.7-16.9); LYMPH % 21.9 % (8-40); MCH 29.2 pg (25.7-33.7); MCHC 34.4 g/dl (32.0-35.9); MEAN PLT VOLUME 7.2 fl (7.5-11.1); PLATELET COUNT 259 10^3/uL (134-434); RBC 5.74 M/mm3 (4.00-5.60); RDW 14.4 % (11.9-15.9); WHITE BLOOD COUNT 14.2 K/mm3 (4.0-10.0)
[2021-07-22] MEDS: cloNIDine HCL 0.1 MG TABLET PO PRN (22:50)
[2021-07-22] MEDS: THIAMINE HCL 100 MG TABLET (FP) PO SCH (22:50)
[2021-07-22] MEDS: MELATONIN 5 MG TABLETS PO SCH (22:50)
[2021-07-23] MEDS: ACETAMINOPHEN 325 MG TABLET (FP) PO PRN (02:44)
[2021-07-23] MEDS: hydrOXYzine PAMOATE 25 MG CAPSULE (FP) PO SCH ×2 (05:35→10:26)
[2021-07-23] MEDS: ONDANSETRON *ODT* 4 MG TABLET SL PRN (05:35)
[2021-07-23 09:26] VITALS: BP 127/63; PULSE 97; TEMP 98.1
[2021-07-23] MEDS: PRENATAL VITAMINS W/ FOLIC ACID TABLET (FP) PO SCH (10:26)
[2021-07-23] MEDS: NICOTINE 14 MG/24 HOURS TOPICAL PATCH TD SCH (10:26)
== END 2021-07-23 09:25 | disposition home or self-care (01) | DRG 773 ==
LOC: YASAS 10:02 → Y6N 13:22
PROVIDERS: ADMIT Allergy & Immunology; ATTEND Allergy & Immunology
PROC: HZ2ZZZZ Detoxification Services for Substance Abuse Treatment (ICD-10-PCS; principal; 2021-07-18)
DX: F11.23 Opioid dependence with withdrawal (principal); F17.210 Nicotine dependence, cigarettes, uncomplicated; D72.829 Elevated white blood cell count, unspecified
CPT/HCPCS: 36415; 80053; 85025; 85027; 86780; C9803; J0735; Q0162; U0003; U0005